=== PATIENT | male | born 1965 | race Caucasian/White ===

== ENCOUNTER 2020-06-25 01:10 | Emergency (ER) | payer SELFPAY ==
[~2020-06-25] VITALS: Ht 180.3 cm; Wt 102.3 kg
[2020-06-25 01:30] VITALS: TEMP 98
[2020-06-25] MEDS ORDERED: PERCOCET 325 MG1 TA2 PO (03:57)
[2020-06-25 04:12] VITALS: BP 133/86; PULSE 90
== END 2020-06-25 04:21 | disposition home or self-care (01) ==
LOC: COL.ER 01:10
DX: S82.831A Other fracture of upper and lower end of right fibula, initial encounter for closed fracture (principal); F17.210 Nicotine dependence, cigarettes, uncomplicated; W01.0XXA Fall on same level from slipping, tripping and stumbling without subsequent striking against object, initial encounter; Y92.410 Unspecified street and highway as the place of occurrence of the external cause
CPT/HCPCS: J2405; J3010; J7030